=== PATIENT | female | born 1980 | race Caucasian/White ===

== ENCOUNTER 2019-04-28 11:56 | Emergency (ER) | payer BC, MEDICAID ==
[~2019-04-28] VITALS: Ht 160 cm; Wt 89.5 kg
[2019-04-28 12:03] VITALS: BP 131/90
[2019-04-28] MEDS ORDERED: ketorolac trometh inj. 60 MG/2 ML VIAL IM ONE (12:25)
[2019-04-28] MEDS ORDERED: LIDOcaine 5% patch TP STA (12:25)
[2019-04-28] MEDS ORDERED: dexamethasone sod phosphate 10mg/ml inj IM STA (12:25)
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
[2019-04-28] MEDS ORDERED: METH4TAB81 PO (12:57)
== END 2019-04-28 13:07 | disposition home or self-care (01) ==
LOC: ER 11:56
DX: S16.1XXA Strain of muscle, fascia and tendon at neck level, initial encounter (principal); S13.4XXA Sprain of ligaments of cervical spine, initial encounter; X58.XXXA Exposure to other specified factors, initial encounter; Y93.89 Activity, other specified; Y92.89 Other specified places as the place of occurrence of the external cause; Y99.8 Other external cause status
CPT/HCPCS: 96372; 99283; J1100; J1885

== ENCOUNTER 2020-02-10 09:23 | Emergency (ER) | payer OTHER ==
[~2020-02-10] VITALS: Ht 160 cm; Wt 86.4 kg
[~2020-02-10 09:23] MED LIST: METH4TAB81 PO
--- NOTE | 2020-02-10 09:48 | NUR ---
MELISSA Stack at bedside.
[2020-02-10] MEDS ORDERED: DOXY100C76 PO (10:44)
[2020-02-10] MEDS ORDERED: BENZ-16 PO (10:44)
[2020-02-10 14:50] VITALS: BP 124/80
== END 2020-02-10 11:22 | disposition home or self-care (01) ==
LOC: ER 09:23
DX: J40 Bronchitis, not specified as acute or chronic (principal); R05 Cough; R07.89 Other chest pain; Z79.2 Long term (current) use of antibiotics; Z79.899 Other long term (current) drug therapy
CPT/HCPCS: 71045; 87502; 87503; 99284

== ENCOUNTER 2020-02-12 08:36 | Emergency (ER) | payer OTHER ==
[~2020-02-12] VITALS: Ht 157.5 cm; Wt 86.4 kg
[~2020-02-12 08:36] MED LIST changes: +BENZ-16 PO; +DOXY100C76 PO
[2020-02-12] MEDS ORDERED: ketorolac tromethamine 15mg/ml inj. IM ONE (10:10)
[2020-02-12] MEDS ORDERED: CYCL-1 PO (10:16)
[2020-02-12 11:56] VITALS: BP 120/86
== END 2020-02-12 12:07 | disposition home or self-care (01) ==
LOC: ER 08:38
DX: S39.012A Strain of muscle, fascia and tendon of lower back, initial encounter (principal); Z98.890 Other specified postprocedural states; Z79.899 Other long term (current) drug therapy; W18.39XA Other fall on same level, initial encounter; Y93.89 Activity, other specified; Y92.89 Other specified places as the place of occurrence of the external cause; Y99.8 Other external cause status
CPT/HCPCS: 72100; 96372; 99283; J1885

== ENCOUNTER 2020-02-14 15:23 | Emergency (ER) | payer OTHER ==
[~2020-02-14] VITALS: Ht 157.5 cm; Wt 86.3 kg
[~2020-02-14 15:23] MED LIST changes: +CYCL-1 PO
[2020-02-14 15:54] VITALS: BP 126/86
== END 2020-02-14 18:37 | disposition home or self-care (01) ==
LOC: ER 15:23
DX: M54.5 Low back pain (principal); R20.0 Anesthesia of skin; Z98.890 Other specified postprocedural states; Z79.899 Other long term (current) drug therapy
CPT/HCPCS: 72148; 99284

== ENCOUNTER 2020-09-03 14:07 | Emergency (ER) | payer BC ==
[~2020-09-03] VITALS: Ht 160 cm; Wt 95.3 kg
[~2020-09-03 14:07] MED LIST changes: -BENZ-16 PO; -DOXY100C76 PO
[2020-09-03 14:22] VITALS: BP 137/71
[2020-09-03] MEDS ORDERED: ARM1EACH89 (15:44)
== END 2020-09-03 16:04 | disposition home or self-care (01) ==
LOC: ER 14:07
DX: M77.8 Other enthesopathies, not elsewhere classified (principal); Z79.899 Other long term (current) drug therapy
CPT/HCPCS: 29260; 99282; 99283